=== PATIENT | female | born 1965 | race Caucasian/White ===

== ENCOUNTER 2017-05-08 16:00 | Emergency (ER) | payer SELFPAY ==
[~2017-05-08] VITALS: Ht 162.6 cm; Wt 94.1 kg
[2017-05-08 16:03] VITALS: Ht 162.6 cm; Wt 94.1 kg
[2017-05-08] MEDS ORDERED: ACET-1256 PO (16:15)
[2017-05-08] MEDS ORDERED: PENI-82 PO (16:26)
--- NOTE | 2017-05-08 16:36 | EMERGENCY ROOM VISIT NOTE ---
History First contact with patient: 16:12 Chief Complaint: DENTAL PAIN Stated Complaint: TOOTH ABSCESS Nursing Triage Summary: Pt states, "I have an abscess on my gum and no dentist will see me. I am very anxious." Pt states abscess is on my left upper gum. Pt reports abscess has drained. History of Present Illness The patient is a 51 year old female who presents to the Emergency Room with complaints of a small abscess on her left upper gum. The patient reports he has had this for the past week. She reports that the abscess is draining. She did call a dentist reported that she could not be seen until she is treated for the infection. The patient has not noticed any facial swelling, fevers or chills. She rates her discomfort a 3 out of 10. Review of Systems 10 system review was performed and was negative except for pertinent positives and negatives as indicated in history of present illness Social History Smoking Status: Never Smoker Current/Historical Medications Scheduled Penicillin V Potassium (Veetids), 500 MG PO QID Scheduled PRN Acetaminophen (Tylenol), 1,000 MG PO DIRECTED PRN for Pain or Fever Physical Exam Vital Signs Date Time Temp Pulse Resp B/P (MAP) Pulse Ox O2 Delivery O2 Flow Rate FiO2 05/08/17 16:03 36.5 146 20 184/129 100 Room Air Physical Exam CONSTITUTIONAL: Healthy and well nourished. Alert and oriented X 3 with positive affect. Patient does not appear in any acute distress. HEENT: Normocephalic, atraumatic. Pupils equal, round and reactive. No obvious facial edema. OROPHARYNX: Examination shows a very small BB sized abscess on the left maxillary gingiva. It is draining. There is no other significant changes noted. The patient does have poor dentition. No evidence for Deshaun's angina or retropharyngeal abscess. LYMPHATICS: No preauricular, cervical chain, submental or submandibular adenopathy. NECK: Full active range of motion without discomfort. CARDIOVASCULAR: Regular rate and rhythm with no murmurs, rubs or gallops. INTEGUMENTARY: No rash or other significant dermatologic conditions noted. NEUROLOGIC: Facial sensations are intact. Medical Decision & Procedures ED Course Patient history and physical exam were performed. Nurse's notes were reviewed. Vital signs were reviewed, showing a blood pressure 184/129. The patient reports a history of white coat syndrome, and is certain that her blood pressure is related to this. She reports that her blood pressures are usually in the 120s over 80s. The patient was encouraged to check her blood pressure frequently to verify that it indeed is not chronically elevated. The patient was provided a prescription for Pen-Vee K 500 mg 4 times a day 10 days. She was encouraged to alternate ibuprofen and Tylenol for pain relief. She refused any prescription analgesics. The patient was encouraged to follow-up with her dentist for further reevaluation and management. The patient was happy with plan of care, and voiced understanding of all discharge instructions, rating her discomfort a 3 out of 10 at the time of discharge. She refused any analgesics while in the emergency department. Medical Decision [place] Drug Monitoring Program Search Results: patient reviewed within database, no issues identified Blood Pressure Screening Patient's blood pressure: Elevated blood pressure Blood pressure disposition: Referred to PCP, Did not require urgent referral Impression Primary Impression: Dental abscess Departure Information Dispostion Home / Self-Care Prescriptions Penicillin V Potassium (Veetids) 500 Mg Tab 500 MG PO QID, #40 TAB Prov: Arthur Perez PA 05/08/17 Forms HOME CARE DOCUMENTATION FORM, IMPORTANT VISIT INFORMATION Patient Instructions [facility] Additional Instructions Complete all Pen-Vee K antibiotics as prescribed. Ibuprofen 800 mg and/or Tylenol 1000 mg every 8 hours. You may also alternate these medications for more effective pain relief: Ibuprofen --4 HRS--> Tylenol --4 HRS--> ibuprofen --4 HRS--> Tylenol .... Follow-up with your dentist for further reevaluation and management - call for an appointment.
[2017-05-08 17:07] VITALS: BP 138/88; PULSE 72; TEMP 36.5; O2SAT 100
== END 2017-05-08 17:07 | disposition home or self-care (01) ==
LOC: C.EDB 16:03 → C.EDD 17:07
DX: K04.7 Periapical abscess without sinus (principal)